=== PATIENT | male | born 1950 | race Caucasian/White ===

== ENCOUNTER 2024-07-03 11:07 | Day surgery (SDC) | payer OTHER ==
[~2024-07-03] VITALS: Ht 165.1 cm; Wt 55.4 kg
[~2024-07-03 11:07] MED LIST: AMLO-257 PO; ATOR40TA28 PO; CARB-38 PO; GABA-1181 PO; LOSA-381 PO; METF-1211 PO; PRAM0.259 PO; SODIUM CHLORIDE 0.9% 1,000 ML ONE; TAMS0.4C94 PO
[2024-07-03] MEDS ORDERED: PROPOFOL 1% 20 ML VIAL IVP ONE (12:00)
[2024-07-03] MEDS ORDERED: GLYCOPYRROLATE 0.2 MG/ML VIAL ONE (12:00)
[2024-07-03] MEDS: SODIUM CHLORIDE 0.9% 1,000 ML IV ONE (12:37)
[2024-07-03 13:05] LABS: GLUCOMETER DEV NAME(LOC) SDS.; GLUCOSE,POINT OF CARE 157 MG/DL (70-110)
[2024-07-03] MEDS ORDERED: OXYGEN THERAPY IH SCH (13:45)
== END 2024-07-03 15:00 | disposition home or self-care (01) ==
LOC: SURGERY 11:07
PROVIDERS: ATTEND Specialist
DX: K62.5 Hemorrhage of anus and rectum (principal); D12.3 Benign neoplasm of transverse colon; I10 Essential (primary) hypertension; G20.A1 Parkinson's disease without dyskinesia, without mention of fluctuations; E11.9 Type 2 diabetes mellitus without complications; Z79.899 Other long term (current) drug therapy
CPT/HCPCS: 45385; 88305; 82962; J2704; J3490; J7030